=== PATIENT | female | born 1995 | race American Indian/Alaskan Native ===

== ENCOUNTER 2020-12-02 05:29 | Inpatient (IN) | payer MEDICAID ==
[2020-12-02] MEDS ORDERED: LACTATED RINGERS 1,000 ML IV ONE (05:51)
[2020-12-02] MEDS ORDERED: DOCUSATE SODIUM 100 MG CAP PO PRN (06:20)
[2020-12-02] MEDS ORDERED: ACETAMINOPHEN 325 MG TAB PO PRN ×2 (06:20→11:30)
[2020-12-02] MEDS ORDERED: BETAMET ACET/BETAMET NA PH 6 MG/ML INJ 5 ML MDV IM ONE ×2 (06:30→06:51)
[2020-12-02] MEDS ORDERED: LACTATED RINGERS 1,000 ML IV SCH ×2 (06:30→06:45)
--- NOTE | 2020-12-02 06:31 | History and Physical Report ---
<JAIMIELENNIE D - Last Filed: 12/02/20 07:02> History of Present Illness Date of admission: 12/02/20 06:20 History of present illness: Walk-in patient who does not have a provider at this facility. States EDC 03/01/21. C/o bleeding since 2a at work, states she check herself and felt the baby in the vagina, also had pain that started at 2a. States PNC at [facility]. PNC uncomplicated. Prev x 3 . Exam reveals BBOW in vagina and breech presentation Past History Past Medical History: no pertinent history Past Surgical History: no surgical history Social history: denies: smoking, alcohol abuse, prescription drug abuse, IV drug use Medications and Allergies Allergies Allergy/AdvReac Type Severity Reaction Status Date / Time No Known Allergies Allergy Unverified 12/02/20 05:51 Active Meds: Active Medications Acetaminophen (Acetaminophen 325 Mg Tab) 650 mg PO Q4H PRN PRN Reason: Pain MILD(1-3)/Fever >100.5/LAW Docusate Sodium (Docusate Sodium 100 Mg Cap) 100 mg PO Q12H PRN PRN Reason: Constipation Lactated Ringer's (Lactated Ringers) 1,000 mls @ 125 mls/hr IV DIRECT CHARITY Lactated Ringer's (Lactated Ringers) 1,000 mls @ 2,250 mls/hr IV PREOP CHARITY Stop: 12/03/20 07:12 Oxytocin/Sodium Chloride (Pitocin/Ns 30 Unit/500ml) 30 units in 500 mls @ 0 mls/hr IV TITR CHARITY; Protocol Cefazolin Sodium (Ancef/Sterile Water 2 Gm/20 Ml) 2 gm in 20 mls @ 80 mls/hr IV PREOP NR; Protocol Stop: 12/02/20 23:45 Multivitamins/Iron/Calcium ( Ucc09-Xi Fumarate-Folic Acid Vit Tab) 1 each PO QDAY CHARITY - Vital Signs Vital signs: Vital Signs Temp Pulse Resp Pulse Ox 97.9 F 88 18 100 12/02/20 05:36 12/02/20 05:36 12/02/20 05:36 12/02/20 05:36 Temp Pulse Resp BP Pulse Ox 97.9 F 90 18 100 12/02/20 05:36 12/02/20 06:50 12/02/20 05:36 12/02/20 06:50 Results Result Diagrams: 12/02/20 06:18 Abnormal lab results 12/02/20 Range/Units 06:18 MCH 26 L (28-32) pg RDW 15.4 H (13.2-15.2) % [place] % (Auto) 9.2 H (0.0-7.3) % All other labs normal. <POLO CALABRESE - Last Filed: 12/02/20 08:41> History of Present Illness Date of examination: 12/02/20 Date of admission: 12/02/20 Chief complaint: Lower abdominal pain and vaginal bleeding since 0200am. History of present illness: @ 27.2 wks by EDC 03/01/21. 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 Denies alcohol, drug use. Past History Family/Genetic History: none Social history: no significant social history - Obstetrical History Expected Date of Delivery: 03/01/21 Actual Gestation: 27 Week(s) 2 Day(s) : 4 Para: 3 Hx # Term Pregnancies: 3 Number of Pregnancies: 0 Spontaneous Abortions: 0 Induced : 0 Number of Living Children: 3 Medications and Allergies Active Meds: Active Medications Acetaminophen (Acetaminophen 325 Mg Tab) 650 mg PO Q4H PRN PRN Reason: Pain MILD(1-3)/Fever >100.5/LAW Docusate Sodium (Docusate Sodium 100 Mg Cap) 100 mg PO Q12H PRN PRN Reason: Constipation Lactated Ringer's (Lactated Ringers) 1,000 mls @ 999 mls/hr IV BOLUS ONE Stop: 12/02/20 06:51 Lactated Ringer's (Lactated Ringers) 1,000 mls @ 125 mls/hr IV DIRECT CHAIRTY Multivitamins/Iron/Calcium ( Owc13-Uq Fumarate-Folic Acid Vit Tab) 1 each PO QDAY CHARITY Review of Systems All systems: negative Genitourinary: vaginal bleeding, other (Abdominal pain.) - Vital Signs Vital signs: Vital Signs Temp Pulse Resp Pulse Ox 97.9 F 88 18 100 12/02/20 05:36 12/02/20 05:36 12/02/20 05:36 12/02/20 05:36 Temp Pulse Resp BP Pulse Ox 97.9 F 81 18 100 12/02/20 05:36 12/02/20 06:20 12/02/20 05:36 12/02/20 06:20 Vaginal exam: BBOW felt, possibly 10cm. Dr. Ceron called, given report on status, and in route to hospital. lace machine operator and as400 programmer aware of vaginal exam and patient need for . Plan of care explained to patient and although she has some anxiety about a she agreed to plan and understands reason why a is needed ( labor in breech presentation). orders on chart. - Physical Exam Breasts: Positive: deferred Cardiovascular: Regular rate Lungs: Positive: Normal air movement Abdomen: Positive: normal appearance, soft Genitourinary (Female): Positive: normal external genitalia, normal perenium Vulva: both: normal Vagina: Positive: normal moisture Uterus: Positive: normal size Extremities: Positive: normal - Obstetrical FHR: category 1 Uterine Contraction Monitor Mode: External Cervical Dilatation: 10 (Some vaginal bleeding noted at the perineum. BBOW felt. ) Uterine Contraction Pattern: Absent Results Result Diagrams: 12/02/20 06:18 All other labs normal. labs drawn on admission. UDS ordered. Assessment and Plan A: 25 y.o. @ 27.2 weeks with BBOW, labor, breech presentation. - Patient Problems (1) labor Onset Date: ~12/02/20 Current Visit: Yes Status: Acute Qualifiers: labor trimester: second trimester Fetus number: single or unspecified fetus Plan to address problem: Admit to labor and delivery. Initiate IV. Draw labs. Obtain UDS. orders placed. lace machine operator and as400 programmer aware of needed. (2) with 27 completed weeks gestation Onset Date: ~12/02/20 Current Visit: Yes Status: Acute Plan to address problem: Continuous EFM.
[2020-12-02] MEDS ORDERED: BICITRA ORAL LIQD 30ML PO ONE (06:35)
[2020-12-02] MEDS ORDERED: METOCLOPRAMIDE 10 MG/2 ML INJ IV ONE (06:35)
[2020-12-02] MEDS ORDERED: FAMOTIDINE 20 MG/2 ML INJ IV ONE (06:35)
[2020-12-02 06:39] LABS: Basophils % (Auto) 0.4 % (0.0-1.8); Eosinophils # (Auto) 0.1 K/mm3 (0.0-0.4); Eosinophils % (Auto) 1.6 % (0.0-4.3); Hematocrit 32.2 % (30.3-42.9); Hemoglobin 10.5 gm/dl (10.1-14.3); Lymphocytes # (Auto) 1.8 K/mm3 (1.2-5.4); Lymphocytes % (Auto) 20.7 % (13.4-35.0); Mean Corpuscular HGB Conc 33 % (30-34); Mean Corpuscular Volume 80 fl (79-97); Monocytes # (Auto) 0.8 K/mm3 (0.0-0.8); Monocytes % (Auto) 9.2 % (0.0-7.3); Platelet Count 269 K/mm3 (140-440); Red Blood Count 4.04 M/mm3 (3.65-5.03); Red Cell Distribution Width 15.4 % (13.2-15.2)
[2020-12-02] MEDS ORDERED: ONDANSETRON 4 MG/2 ML INJ ONE (06:42)
[2020-12-02] MEDS ORDERED: SUCCINYLCHOLINE CHLORIDE 200 MG/10 ML INJ MDV ONE (06:42)
[2020-12-02] MEDS ORDERED: propofoL 200 MG/20 ML VIAL IV ONE (06:42)
[2020-12-02] MEDS ORDERED: GLYCERIN PEDIATRIC 1 GM RECT SUPP RC ONE (06:50)
[2020-12-02] MEDS ORDERED: OXYTOCIN DRIP 30 UNITS/500 ML BAG IV SCH ×2 (07:00→12:00)
[2020-12-02] MEDS ORDERED: ceFAZolin/Water 2 GM/20 ML 2 GM/20 ML SYRINGE IV NR (07:00)
--- NOTE | 2020-12-02 07:11 | Anesthesia Consultation ---
Anesthesia Consult and Med Hx Date of service: 12/02/20 - Airway Anesthetic Teeth Evaluation: Good ROM Head & Neck: Adequate Mental/Hyoid Distance: Adequate Mallampati Class: Class II Intubation Access Assessment: Probably Good - Pulmonary Exam CTA: Yes - Cardiac Exam Cardiac Exam: RRR - Pre-Operative Health Status ASA Pre-Surgery Classification: ASA2 Proposed Anesthetic Plan: General - Other Systems Hx Alcohol Use: No Hx Obesity: Yes
--- NOTE | 2020-12-02 07:11 | Anesthesia Day of Surgery ---
Anesthesia Day of Surgery - Day of Surgery Patient Examined: Yes Patient H&P Reviewed: Yes Patient is NPO: Yes
[2020-12-02] MEDS ORDERED: ceFAZolin/STERILE WATER 2 GM/20 ML SYRINGE IV ONE (07:19)
[2020-12-02] MEDS ORDERED: SODIUM CHLORIDE 0.9% IRR 1,500 ML BOTTLE IR ONE (07:21)
[2020-12-02] MEDS ORDERED: WATER FOR IRRIG STERILE 1,500 ML BOTTLE IR ONE (07:21)
--- NOTE | 2020-12-02 07:51 | Ultrasound Report ---
OB ULTRASOUND >= 14 WEEKS FETUS INDICATION: wellbeing, vaginal bleed COMPARISON: None at this facility FINDINGS: A single gestation intrauterine is present with breech presentation. The placenta is anteri or, right lateral, grade 0 and free of the cervical os. heart tones measure 91 bpm. The cervix appears to be patent with the cervical os measuring 8.4 cm in diameter. There appear to be bulging membranes into the upper vaginal canal. No premature rupture is appreciated. Amniotic fluid volume is normal with a fluid index of 12.1. anatomical survey was not performed. Biparietal diameter is 6.5 cm which equals 26 weeks 2 days. Head circumference is 24.6 cm which equals 26 weeks 5 days. Abdominal circumference is 25.6 cm which equals 25 weeks 6 days. Femur length is 4.3 cm which equals 23 weeks 6 days. Overall estimated sonographic age is 25 weeks 5 days. EDC: 03/12/2021.. HC/AC ratio: 1.15 Cephalic index: 81.2 Estimated weight 787 g +/- 116 g IMPRESSION: Viable but immature with heart rate measuring 91 bpm. Breech presentation. The cervix appears to be patent measuring 8.4 cm in diameter. There appear to be bulging membranes in to the upper vaginal canal. No clear evidence for premature rupture of membranes at the time of this exam. Signer Name: Jose Jerome Jr, MD Signed: 12/02/2020 7:46 AM Workstation Name: [id number]
[2020-12-02 08:11] LABS: Bilirubin,Urine NEG (Negative); Blood,Urine NEG (Negative); Color,Urine Yellow (Yellow); Mucus,Urine FEW /HPF; Protein,Urine <15 mg/dL mg/dL (Negative); Urobilinogen,Urine < 2.0 mg/dL (<2.0)
[2020-12-02] MEDS ORDERED: LIDOCAINE MPF (2%) 20 MG/1 ML VIAL 5 ML ONE (08:15)
[2020-12-02] MEDS ORDERED: dexAMETHasone 20 MG/5 ML VIAL ONE (08:16)
[2020-12-02] MEDS ORDERED: PHENYLEPHRINE/NS 1,000 MCG/10 ML SYRINGE (OR USE) IV ONE (08:30)
[2020-12-02] MEDS ORDERED: KETOROLAC 30 MG/1 ML INJ ONE (08:30)
--- NOTE | 2020-12-02 08:41 | XRay Report ---
ABDOMEN 1 VIEW(S) INDICATION / CLINICAL INFORMATION: EMERGENCY C SECTION. NO COUNT DONE.. COMPARISON: OB ultrasound performed earlier today FINDINGS: TUBES / LINES: None. BOWEL GAS PATTERN: No significant abnormality. FREE AIR / EXTRALUMINAL GAS: None seen. ADDITIONAL FINDINGS: No radiopaque foreign body is identified in the intraperitoneal abdomen or pelvi s. A hairpin is noted overlying the right flank region which was noted by the technologist and is ext ernal to the patient. IMPRESSION: No intra-abdominal foreign body is detected on x-ray. Signer Name: Jose Jerome Jr, MD Signed: 12/02/2020 8:37 AM Workstation Name: [id number]
[2020-12-02 08:46] LABS: Amphetamine Screen,Urine Negative; Benzodiazepines Screen,Urine Negative; Cannabinoid Screen,Urine Negative; Cocaine Screen,Urine Negative; Methadone Screen,Urine Negative; Opiate Screen,Urine Negative
--- NOTE | 2020-12-02 08:55 | Operative Report ---
Operative Report Operative Report: Date of operation: 12/02/2020 Pre-operative diagnosis: 1. 27 weeks gestational age 2. Unknown care status 3. labor 4. BMI 36.2 5. Breech presentation Post-operative diagnosis: 1. 27 weeks gestational age 2. Unknown care status 3. labor 4. BMI 36.2 5. Breech presentation 6. Probable placental abruption Procedure name(s): Primary low transverse uterine incision Surgeon: Wanda Ceron MD Activities Counselor: Bere Hernandez CNM Anesthesia: General QBL: 591 mL Urine output: 200 mL of clear urine out at the end of the procedure Fluids: [] mL Findings: Liveborn male weight 2 Lbs. 4 oz. Apgars of 3 and 9 at one and 5 minutes Indications: [] Procedure: Patient was taking to the operating room. General anesthesia was induced. Patient was then prepped and draped in the usual sterile fashion Timeout was performed. Once an appropriate level of anesthesia was noted, a Pfannenstiel incision was made and extended the fascia which was incised and extended lateral direction. The overlying fascia was sharply dissected away from the underlying rectus muscles in the superior inferior direction. The midline was entered bluntly. Bladder blade was placed. Vesicouterine fold was incised with blunt dissection bladder flap was created. A transverse incision was made in the lower uterine segment and extended superolateral direction with finger fractionation. Anterior placenta was encountered with what appeared to be multiple clots spontaneously delivered. Clear fluid was noted. Infant was delivered from the complete breech position. Cord was doubly clamped and cut infant was given to the resuscitation team present. Placenta was spontaneously delivered. The uterus was exteriorized and cleaned of any further placental tissue and products of conception. Uterine incision was approximated using 0 Vicryl in a running interlocking stitch followed by further suture of 0 Vicryl in imbricating fashion. When hemostasis was noted the uterus was allowed back in the pelvic cavity. Pelvis was irrigated with warm normal trae ine. Once hemostasis was noted the rectus muscles were approximated using 0 Vicryl interrupted simple stitches 3. Once hemostasis was noted the fascia was approximated using 0 Vicryl simple running stitch. The incision was irrigated with warm saline, once hemostasis as noted, the subcuticular adipose tissue was reapproximated using 3-0 Vicryl in a simple running fashion. Skin was approxima haven using 4-0 Vicryl on a Alo needle in a subcuticular manner. Counts were correct x3. Patient tolerated the procedure well, she was taken to recovery room in stable condition.
[2020-12-02] MEDS ORDERED: PRENATAL VIT27-FE FUMARATE-FOLIC ACID VIT TAB PO SCH (10:00)
[2020-12-02] MEDS: D5W/LACTATED RINGERS 1,000 ML IV SCH (11:47)
[2020-12-02] MEDS ORDERED: SIMETHICONE 80 MG CHEW TAB PO PRN (12:00)
[2020-12-02] MEDS ORDERED: ONDANSETRON 4 MG/2 ML INJ IV PRN (12:00)
[2020-12-02] MEDS ORDERED: NALOXONE 0.4 MG/1 ML INJ IV PRN (12:00)
[2020-12-02] MEDS ORDERED: WITCH HAZEL/ GLYCERIN PAD TP PRN (12:00)
[2020-12-02] MEDS ORDERED: LANOLIN/ZINC/DIMETHICONE (LANSINOH) 7 GM TP PRN (12:00)
[2020-12-02 13:44] LABS: Hepatitis C Virus Antibody Non-Reactive (NonReactive)
[2020-12-02] MEDS: HYDROmorphone 1 MG/1 ML INJ IV PRN ×2 (13:50→20:39)
[2020-12-02] MEDS: KETOROLAC 30 MG/1 ML INJ IV SCH ×3 (16:17→23:28)
[2020-12-02] MEDS: ceFAZolin/NS 1 GM/50 ML 1 GM/50 ML BAG IV SCH (16:17)
[2020-12-02] MEDS ORDERED: MAGNESIUM HYDROXIDE (MOM) ORAL LIQD UDC PO PRN (22:00)
[2020-12-03 00:02] LABS: Hematocrit 28.7 % (30.3-42.9); Hemoglobin 9.4 gm/dl (10.1-14.3)
[2020-12-03] MEDS: D5W/LACTATED RINGERS 1,000 ML IV SCH (00:33)
[2020-12-03] MEDS: ceFAZolin/NS 1 GM/50 ML 1 GM/50 ML BAG IV SCH (00:33)
[2020-12-03] MEDS: HYDROmorphone 1 MG/1 ML INJ IV PRN (00:45)
[2020-12-03] MEDS: KETOROLAC 30 MG/1 ML INJ IV SCH ×2 (02:30→05:25)
--- NOTE | 2020-12-03 06:18 | Progress Note ---
Assessment and Plan Pt in very good spirits this AM. Expressing appreciation for everything done yesterday for delivery. BP 118-104/70-60 with an outlier of 98/41. Dressing D&I to be removed this AM H&H 03/02 drop r/t blood loss from surgery. No s/sx of anemia. Doing well s/p section. P: Advance diet and activity Encouraged OOB to shower and walk in the room. Continue pathway Subjective - Subjective Date of service: 12/03/20 (pt in good spirits; c/o mild LAW) Principal diagnosis: Day #1 s/p emergency primary section Patient reports: voiding normally, pain well controlled, ambulating normally [place]: in NICU (Pt states baby is in fair condition) Objective - Vital Signs Latest vital signs: Vital Signs Temp Pulse Resp BP BP Pulse Ox 12/03/20 05:25 18 12/03/20 04:42 98.0 F 65 18 98/41 99 12/03/20 00:45 18 12/03/20 00:30 98.6 F 74 16 104/77 12/02/20 23:28 20 12/02/20 20:39 18 12/02/20 16:40 97.8 F 80 18 106/50 12/02/20 16:17 18 12/02/20 13:50 18 12/02/20 12:19 98.0 F 72 17 121/54 98 12/02/20 10:00 97.7 F 69 16 131/58 97 12/02/20 09:45 97.5 F L 67 15 129/63 97 12/02/20 09:30 94.5 F L 69 17 121/66 96 12/02/20 09:15 94.6 F L 70 19 117/66 96 12/02/20 09:00 68 19 127/57 99 12/02/20 08:45 94.4 F L 72 21 123/65 100 12/02/20 08:40 69 22 121/62 100 12/02/20 08:35 70 24 115/68 100 12/02/20 08:30 73 23 113/62 100 12/02/20 08:26 93.5 F L 72 24 109/54 100 12/02/20 06:50 90 100 12/02/20 06:45 94 H 100 12/02/20 06:44 81 64 L 12/02/20 06:40 83 100 12/02/20 06:35 82 100 12/02/20 06:34 94 H 91 12/02/20 06:30 89 100 12/02/20 06:25 82 100 12/02/20 06:20 81 100 12/02/20 06:15 82 100 Intake and Output 12/02/20 12/02/20 12/03/20 14:59 22:59 06:59 Intake Total 2800 1790 500 Output Total 3275 1200 1300 Balance -475 590 -800 Intake: IV 2800 1050 ANCEF/NS 1 GM/50 ML 1 gm 50 In 50 ml @ 100 mls/hr IV Q8H CHARITY Rx#:[id number] D5lr 1,000 ml @ 125 mls/ 1000 hr IV DIRECT CHARITY Rx#: [id number] Oral 740 200 Intake, Free Water 300 Output: Urine 3275 1200 1300 Indwelling Catheter 1800 1200 Void 1300 Other: Total, Intake Amount 420 200 Total, Output Amount 1800 500 500 # Voids Void 1 Estimated Blood Loss 591 - Exam Breasts: Present: normal Cardiovascular: Present: Regular rate Lungs: Present: Clear to auscultation Abdomen: Present: normal appearance, soft, normal bowel sounds Uterus: Present: normal, fundal height below umbilicus Extremities: Present: normal Deep Tendon Reflex Grade: Normal +2 Incision: Present: normal, dry, intact, dressed (to be removed this AM) - Labs Labs: Abnormal lab results 12/02/20 12/02/20 12/02/20 Range/Units 06:18 06:18 23:46 Hgb 9.4 L (10.1-14.3) gm/dl Hct 28.7 L (30.3-42.9) % MCH 26 L (28-32) pg RDW 15.4 H (13.2-15.2) % [place] % (Auto) 9.2 H (0.0-7.3) % Syphilis IgG Antibody Reactive A (NonReactive)
--- NOTE | 2020-12-03 07:46 | Event Note ---
Date: 12/03/20 (called by RN low BP and pt c/o LAW 03/14) Made Dr Patel aware of pt and concerns Stat H&H ordered Will have anesthesia see pt for c/o severe LWA.
[2020-12-03] MEDS: ACETAMINOPHEN 500 MG TAB PO PRN (08:00)
[2020-12-03] MEDS ORDERED: IBUPROFEN 800 MG TAB PO PRN (09:00)
[2020-12-03] MEDS: oxyCODONE /ACETAMINOPHEN 5-325MG TAB PO PRN ×2 (09:41→19:25)
[2020-12-03 10:55] LABS: Alanine Aminotransferase 15 units/L (7-56); Albumin 2.4 g/dL (3.9-5); Blood Urea Nitrogen 7 mg/dL (7-17); Calcium 7.8 mg/dL (8.4-10.2); Hemolysis Index 0
[2020-12-03 11:03] LABS: BUN/Creatinine Ratio 18
[2020-12-03 11:49] LABS: Hematocrit 24.3 % (30.3-42.9)
--- NOTE | 2020-12-03 13:16 | Cat Scan Report ---
CT HEAD WITH AND WITHOUT CONTRAST HISTORY: Headaches COMPARISON: None TECHNIQUE: CT images of the head were obtained prior to and following administration of intravenous c ontrast. All CT scans at this location are performed using CT dose reduction for ALARA by means of au tomated exposure control. CONTRAST: 100 ml of Omnipaque 300 FINDINGS: Cerebral and Cerebellar Hemispheres: No evidence of mass or mass effect. No midline shift. No acute hemorrhage. No acute cortical infarct. No extra-axial fluid collection. No abnormal enhancement. Ventricles: Normal in size and configuration for age. Osseous Structures: No significant abnormality. Visualized Paranasal Sinuses: No significant abnormality. Additional Findings: None IMPRESSION: Cranial CT scan within normal limits. Signer Name: Jose Jerome Jr, MD Signed: 12/03/2020 1:11 PM Workstation Name: [id number]
[2020-12-03 15:08] LABS: Bilirubin,Urine NEG (Negative); Blood,Urine MOD (Negative); Color,Urine Straw (Yellow); Mucus,Urine FEW /HPF; Protein,Urine <15 mg/dL mg/dL (Negative); Urobilinogen,Urine < 2.0 mg/dL (<2.0)
--- NOTE | 2020-12-03 17:43 | Event Note ---
Date: 12/03/[address] was normal. Call RN states patient w/o complaint has been to nursery to visit
[2020-12-03] MEDS: FERROUS SULFATE 325 MG TAB PO SCH (21:49)
[2020-12-03] MEDS: DOCUSATE SODIUM 100 MG CAP PO SCH (21:49)
--- NOTE | 2020-12-03 22:26 | Post Anesthesia Evaluation ---
- Post Anesthesia Evaluation Patient Participated: Yes Airway Patent: Yes Stable Respiratory Function: Yes Nausea/Vomiting: No Temp > 96.8F: Yes Pain Manageable: Yes Adequeate Hydration: Yes Anesthesia Complications: No Block Receding Appropriately: Yes
[2020-12-04] MEDS: oxyCODONE /ACETAMINOPHEN 5-325MG TAB PO PRN ×3 (03:25→17:40)
[2020-12-04] MEDS: ACETAMINOPHEN 500 MG TAB PO PRN (06:37)
--- NOTE | 2020-12-04 08:46 | Discharge Summary ---
Providers - Providers Date of Admission: 12/02/20 06:20 Date of discharge: 12/04/20 (Pt has a strong desire to go home. ) Attending physician: LENNIE ETIENNE 12/02/20 11:13 Consult to Case Management [CONS] Routine Services Needed at Discharge: Clinic Receptionist Notified:: Case Management Consult to Sow Farm Technician [CONS] Routine Reason For Exam: Primary care physician: INFORMATION OPERATOR Hospitalization Reason for admission: labor Delivery: Procedure: primary low transverse (Breech presentation.) Episiotomy: none Laceration: none Incision: normal, dry, intact Other procedures: none complications: none Discharge diagnosis: delivery (Stat d/t breech presentation.) [place] baby: male Pertinent studies: Incision care and when to call quality control technician provider with questions/concerns was discussed. Hospital course: S: Pt doing well. Ambulating, voiding, and passing flatus without difficulty. BC: Nexplanon. Would like Depo before discharge. O: VSS. Adequate I&O's. H/H 8.0/24.3, asymptomatic anemia of . Incision open to air, intact, no drainage or s/sx of infection noted. A: 25 y.o. s/p primary d/t labor, breech presentation, POD #3. In good condition and can be discharged home. P: Discharge home with instructions. To schedule an incision check in the office in 1 week. Condition at discharge: Good Disposition: DC-01 TO HOME OR SELFCARE Plan - Discharge Medications Prescriptions: Docusate Sodium [Colace] 100 mg PO BID PRN #60 capsule PRN Reason: Constipation Ferrous Sulfate [Feosol 325 MG tab] 325 mg PO QDAY #30 tablet Ibuprofen [Motrin 800 MG tab] 800 mg PO TID PRN #30 tablet PRN Reason: Pain oxyCODONE /ACETAMINOPHEN [Percocet 5/325 mg] 1 - 2 tab PO Q6HR PRN #14 tablet PRN Reason: Pain - Provider Discharge Summary Activity: routine, no sex for 6 weeks, no heavy lifting 4 weeks, no strenuous exercise Diet: routine Instructions: routine Additional instructions: [] Smoking cessation referral if applicable(refer to patient education folder for contact #) [] Refer to [facility]'s [facility] Booklet Call your doctor immediately for: * Fever > 100.5 * Heavy vaginal bleeding ( >1 pad per hour) * Severe persistent headache * Shortness of breath * Reddened, hot, painful area to leg or breast * Drainage or odor from incision. * Keep incision clean and dry at all times and follow doctor's instructions jhoan argueta bathing/showering Thank you for allowing us to take care of you and your baby. We hope that your baby boy continues to do well in the baby ICU. Please call our office at [phone] to schedule your incision check in 1 week. Please take all medications as prescribed. Should you have any questions or concerns after discharge, please do not hesitate to call our office at [phone]. Our office address is printed below. We are right next door to the hospital. You will come to this office for your incision check in 1 week. My OBG[facility] [address] [place] [facility], [address] - Follow up plan Follow up: PRIMARY MD JESS [Primary Care Provider] - 7 Days Forms: [facility] Discharge Summary
[2020-12-04] MEDS: DOCUSATE SODIUM 100 MG CAP PO SCH (08:58)
[2020-12-04] MEDS ORDERED: medroxyPROGESTERone ACETATE 150 MG/ML SYRINGE IM NR (09:30)
[2020-12-04] MEDS: FERROUS SULFATE 325 MG TAB PO SCH (10:15)
[2020-12-04 18:10] VITALS: BP 103/52
== END 2020-12-04 18:17 | disposition home or self-care (01) | DRG 765 ==
LOC: TRG 05:29 → APU 05:30 → TRG 06:20 → APU 06:20 → OB 11:04
PROVIDERS: ADMIT Obstetrics & Gynecology; ATTEND Obstetrics & Gynecology
PROC: 10D00Z1 Extraction of Products of Conception, Low, Open Approach (ICD-10-PCS; principal; 2020-12-02)
DX: O32.1XX0 Maternal care for breech presentation, not applicable or unspecified (principal); O60.14X0 Preterm labor third trimester with preterm delivery third trimester, not applicable or unspecified; Z20.822 Contact with and (suspected) exposure to COVID-19; Z37.0 Single live birth; Z3A.27 27 weeks gestation of pregnancy
CPT/HCPCS: 36415; 70470; 74018; 76816; 80053; 80307; 81001; 85014; 85018; 85025; 86592; 86593; 86706; 86762; 86780; 86803; 86850; 86900; 86901; 87086; 87806; 88305; 99211; G0378; G0463; J0330; J0690; J0702; J1100; J1170; J1885; J2370; J2405; J2704; J2765; J3490; J7120; J7121; Q9967; U0003